=== PATIENT | female | born 2000 | race Asian ===

== ENCOUNTER 2023-07-19 21:57 | Emergency (ER) | payer SELFPAY ==
[~2023-07-19] VITALS: Ht 162.6 cm; Wt 55.0 kg
[2023-07-19 22:00] VITALS: TEMP 97.9; O2SAT 99
[2023-07-19] MEDS: SODIUM CHLORIDE 0.9% 1,000 ML IV ONE (22:50)
[2023-07-19 23:00] VITALS: BP 97/76; PULSE 80; RESP 18
[2023-07-19 23:01] LABS: BASOPHILS % 1.1 % (0.0-2.0); EOSINOPHILS % 0.9 % (0.0-5.0); HEMATOCRIT. 42.8 % (36.0-48.0); HEMOGLOBIN. 13.9 g/dL (12.0-16.0); LYMPHOCYTES % 25.2 % (20.0-50.0); MEAN CORPUSCULAR HEMOGLOBIN 28.1 pg (28.0-32.0); MEAN CORPUSCULAR HGB CONC 32.6 g/dL (31.0-37.0); MEAN CORPUSCULAR VOLUME 86.4 fL (81.0-99.0); MONOCYTES % 4.2 % (2.0-8.0); NEUTROPHILS % 68.6 % (40.0-76.0); RED BLOOD CELL COUNT 4.95 mill/uL (4.2-5.4); RED CELL DISTRIBUTION WIDTH 15.3 % (11.6-14.6); WHITE BLOOD COUNT 13.1 x1000/uL (4.5-11.0)
[2023-07-19 23:08] LABS: DIFFERENTIAL COMMENT 1
[2023-07-19 23:27] LABS: ALANINE AMINOTRANSFERASE 25 IU/L (10-49); ALBUMIN 4.9 g/dL (3.2-4.8); ASPARTATE AMINOTRANSFERASE 33 IU/L (<34); BILIRUBIN TOTAL 0.4 mg/dL (0.1-1.0); CALCIUM 8.7 mg/dL (8.7-10.4); CARBON DIOXIDE 20 mEq/L (21-32); CHLORIDE 106 mEq/L (98-107); CREATININE 0.7 mg/dL (0.6-1.0); ETHANOL BLOOD 266 mg/dL (<10); GLUCOSE 93 mg/dL (70-105); POTASSIUM 4.2 mEq/L (3.5-5.1); PROTEIN TOTAL 8.5 g/dL (6.0-8.3); SODIUM 140 mEq/L (136-145); UREA NITROGEN BLOOD 8 mg/dL (9-23)
[2023-07-19 23:30] LABS: HCG SCREEN NEGATIVE
[2023-07-19 23:56] LABS: MEAN PLATELET VOLUME 8.6 fl (7.4-10.4); PLATELET 281 x1000/uL (130-400)
[2023-07-20] MEDS ORDERED: ONDA4TAB50 MT (01:00)
== END 2023-07-20 01:19 | disposition home or self-care (01) ==
LOC: ER 21:57
DX: F10.129 Alcohol abuse with intoxication, unspecified (principal); G92.9 Unspecified toxic encephalopathy; Y90.8 Blood alcohol level of 240 mg/100 ml or more
CPT/HCPCS: 80053; 80320; 84703; 85025; 36415; 96360; 99284; J7030; G0480